=== PATIENT | female | born 2000 | race Caucasian/White ===

== ENCOUNTER 2024-09-02 11:08 | Emergency (ER) | payer BC, SELFPAY ==
[2024-09-02 11:11] VITALS: BP 126/88
--- NOTE | 2024-09-02 12:18 | ED.GENMED ---
History of Present Illness
General
Chief Complaint: Anxiety
Source: patient and family
Exam Limitations: none
Time Seen by Provider: 09/02/24 11:36
Nursing documentation reviewed up to this point in time: agreed with
History of Present Illness
History of Present Illness:
Patient is a 22-year-old male who presents to the ER for evaluation of anxiety. Patient has past medical history of anxiety and just completed college and is home for the summer. She is set to graduate September 14. She reports she is under a lot of
stress and has been having nightmares and not been able to sleep well. She did have a therapist online however she has not seen her in a while. In addition patient was on Lexapro and Wellbutrin but weaned herself off several months ago and has
not taken any medicine since. She was seen in [facility] yesterday for anxiety and given clonazepam. She did take clonazepam and ' had the best sleep ever,' however with how much anxiety she has been having she was brought to the ER
by family for evaluation.
She denies any suicidal thoughts.
Review of Systems
Review of Systems
Allergies reviewed?: Yes
Other source history: family
All Other Systems: ROS reviewed and negative except as documented in HPI and ROS
Constitutional: Reports no symptoms; Denies fever, fatigue or chills
Respiratory: Reports no symptoms
Cardiac: Reports no symptoms
ABD/GI: Reports no symptoms
: Reports no symptoms
Musculoskeletal: Reports no symptoms
Skin: Reports no symptoms
Neurological: Reports no symptoms
Psychiatric: Reports depression and anxiety; Denies suicidal or hallucinations
Phy Exam
General Physical Exam
General Presentation: no apparent distress
General age: appears stated age
General Skin: warm and dry
General Habitus: normal
General Mental: alert
General Hydration: appears well hydrated
Neurological Exam
Neurological Exam: alert and oriented x3
Musculoskeletal Exam
Musculoskeletal Exam: full ROM
Skin Exam
Skin Exam: normal color and warm/dry
Course
Orders/Labs/Results
Orders:
Orders
09/02/24 12:21
Crisis Consult Urgent
Reason for Consult: anxiety
Vital Signs
Initial and Last Documented VS:
Initial Vital Signs
Temp Pulse Resp BP Pulse Ox
98.6 F 107 16 126/88 99
09/02/24 11:11 09/02/24 11:11 09/02/24 11:11 09/02/24 11:11 09/02/24 11:11
Last Documented Vital Signs
Temp Pulse Resp BP Pulse Ox
98.6 F 107 20 126/88 99
09/02/24 11:11 09/02/24 11:11 09/02/24 12:06 09/02/24 11:11 09/02/24 11:11
MDM/Problems Addressed
MDM/Problems Addressed:
Patient is a 24-year-old female who presented here for anxiety. She has chronic anxiety weaned himself off of medication and as documented was recently in [facility] yesterday given clonazepam. Patient is here for resources and for further
evaluation of anxiety. She is awake alert pleasant not suicidal well-appearing. She was cleared medically ( has no physical complaints) and sent to [facility] .
*Pulse Oximetry
Patient hypoxic: no
*Critical Care Note
Total Time (30-74mins, 75-104mins- exclusive of procedures): Not Applicable
ED Attending Note
-
Portions of this chart may have been created with voice recognition software.� Occasional wrong word or��sound alike� substitutions may have occurred due to the inherent limitations of voice recognition software.
Discharge Plan
Departure
Patient Disposition: [facility]
Date of Disposition: 09/02/24
Time of Disposition: 13:05
Patient with high blood pressure during this ER visit?: No
Condition: Fair
Covid-19: Not Applicable
Discharge Problem:
Anxiety
Instructions: Anxiety, Adult (DC)
Referrals:
Aldo Gonzales, DO [Family Provider] -
Interventions
Interventions:
*Risk Screen - Suicide Last Done: 09/02/24 11:11
*General Assessment Last Done: 09/02/24 11:11
*Neglect/Abuse Screening Last Done: 09/02/24 11:11
*ED- Fall Risk Assessment Last Done: 09/02/24 11:11
*ED COVID-19 Vaccine History Last Done: 09/02/24 11:11
*Nursing Disposition Last Done: 09/02/24 14:01
ED-Psychological Assessment Last Done: 09/02/24 11:49
Discharge Date and Time
Discharge Date/Time: 09/02/24 14:02
Print Language: PASHTO
== END 2024-09-02 14:02 ==
LOC: EMR 11:08
PROVIDERS: EMERGENCY PHYSICIAN Student in an Organized Health Care Education/Training Program; FAMILY PHYSICIAN Family Medicine
DX: F41.9 Anxiety disorder, unspecified (principal)
CPT/HCPCS: 99282